=== PATIENT | male | born 1950 | race Caucasian/White ===

== ENCOUNTER 2020-03-08 01:32 | Emergency (ER) | payer OTHER ==
[~2020-03-08] VITALS: Ht 170.2 cm; Wt 64.4 kg
[2020-03-08] MEDS ORDERED: FLOMAX0.4 MG PO (01:46)
[2020-03-08] MEDS ORDERED: SYNTHROID50 MCG PO (01:47)
[2020-03-08] MEDS ORDERED: PREDNISONE50 MG PO (03:00)
[2020-03-08 03:11] VITALS: BP 151/57
== END 2020-03-08 03:12 | disposition home or self-care (01) ==
LOC: M.ERS 01:32
DX: T78.1XXA Other adverse food reactions, not elsewhere classified, initial encounter (principal); E03.9 Hypothyroidism, unspecified; Z79.899 Other long term (current) drug therapy; X58.XXXA Exposure to other specified factors, initial encounter